=== PATIENT | female | born 1965 | race Caucasian/White ===

== ENCOUNTER 2023-11-25 06:31 | Day surgery (SDC) | payer SELFPAY ==
[2023-11-18 14:45] VITALS: BMI 25.7
[2023-11-25] MEDS ORDERED: EPINEPHrine/PF 1 MG/1 ML (1:1,000) AMPULE ONE ×2 (07:12→08:01)
[2023-11-25] MEDS ORDERED: NITROGLYCERIN 2% OINTMENT - 1GM PACKET TD ONE (07:12)
[2023-11-25] MEDS ORDERED: BUPIVACAINE HCL/PF 0.25% (2.5MG/ML) 10 ML VIAL ONE (07:12)
[2023-11-25] MEDS ORDERED: BACITRACIN ZINC 15 GM TUBE TOPICAL OINTMENT ONE (07:13)
[2023-11-25] MEDS ORDERED: ONDANSETRON 4 MG/2 ML VIAL ONE (07:52)
[2023-11-25] MEDS ORDERED: HYDROmorphone HCL/PF 1 MG/ML VIAL ONE ×2 (07:52→10:41)
[2023-11-25] MEDS ORDERED: PROPOFOL 40 ML ONE (07:52)
[2023-11-25] MEDS ORDERED: ceFAZolin SODIUM 1 GM VIAL ONE (07:52)
[2023-11-25] MEDS ORDERED: ROCURONIUM BROMIDE 50 MG/5 ML SYRINGE ONE ×2 (07:52→11:17)
[2023-11-25] MEDS ORDERED: DEXAMETHASONE SOD PHOSPHATE 4 MG/1 ML VIAL ONE (07:52)
[2023-11-25] MEDS ORDERED: MIDAZOLAM HCL 2 MG/2 ML SINGLE DOSE VIAL ONE (07:53)
[2023-11-25] MEDS ORDERED: LIDOCAINE HCL/PF 2% SDV 5ML VIAL ONE (07:54)
[2023-11-25] MEDS ORDERED: HEPARIN NA (PORCINE) 5,000 UNITS/ML 1ML VIAL ONE (07:56)
[2023-11-25] MEDS ORDERED: BUPIVACAINE LIPOSOME/PF (EXPAREL) 266 MG/20 ML VIAL ONE (08:00)
[2023-11-25] MEDS ORDERED: HEPARIN NA (PORCINE) 5,000 UNITS/ML 1ML VIAL SQ ONE (08:01)
[2023-11-25] MEDS ORDERED: LIDOCAINE 1%/EPI 1:100000 (50 ML MULTI DOSE VIAL) ONE (08:01)
[2023-11-25] MEDS ORDERED: ACETAMINOPHEN INJECTION 100 ML IVPB ONE (09:59)
[2023-11-25] MEDS ORDERED: ePHEDrine SULFATE 50 MG/1 ML AMPULE ONE (10:20)
[2023-11-25] MEDS ORDERED: PROPOFOL 20 ML ONE ×2 (12:49→13:11)
[2023-11-25] MEDS ORDERED: ONDANSETRON 4 MG/2 ML VIAL IVPB PRN (13:54)
[2023-11-25] MEDS ORDERED: ONDANSETRON 4 MG/2 ML VIAL IVPUSH PRN (13:56)
[2023-11-25] MEDS ORDERED: LACTATED RINGERS SOLUTION 1,000 ML IV SCH ×2 (14:00)
[2023-11-25] MEDS: HYDROmorphone HCl 2 MG/ML VIAL IVPUSH PRN ×3 (14:00→14:40)
[2023-11-25] MEDS ORDERED: valACYclovir HCL 500 MG TABLET (FP) PO PRN (14:03)
[2023-11-25] MEDS: CEFAZOLIN 1 GM in DEXTROSE 5%-WATER - 50 ML IVPB SCH (17:18)
[2023-11-25] MEDS: oxyCODONE HCL 5 MG TABLET PO PRN (18:07)
[2023-11-25] MEDS: BACITRACIN ZINC 15 GM TUBE TOPICAL OINTMENT TP SCH (21:39)
[2023-11-25] MEDS: GLYCOPYRROLATE 1 MG TABLET PO SCH (21:39)
[2023-11-25] MEDS ORDERED: MONTELUKAST NA 10 MG TABLET PO SCH (22:00)
[2023-11-26] MEDS: oxyCODONE HCL 5 MG TABLET PO PRN ×3 (01:36→10:43)
[2023-11-26] MEDS: CEFAZOLIN 1 GM in DEXTROSE 5%-WATER - 50 ML IVPB SCH ×2 (01:36→09:49)
[2023-11-26 06:56] VITALS: PULSE 90
[2023-11-26] MEDS ORDERED: SIMETHICONE 80 MG TAB.CHEW (FP) PO PRN (07:20)
[2023-11-26] MEDS ORDERED: PROMETHAZINE HCL 25 MG/1 ML VIAL IVPB PRN (07:22)
[2023-11-26] MEDS ORDERED: HEPARIN NA (PORCINE) 5,000 UNITS/ML 1ML VIAL SQ SCH (08:00)
[2023-11-26] MEDS ORDERED: diazePAM 5 MG TABLET PO PRN (08:24)
[2023-11-26] MEDS ORDERED: BACLOFEN 10 MG TABLET (FP) PO ONE (08:30)
[2023-11-26] MEDS ORDERED: ACETAMINOPHEN 1000 MG/100 ML BAG IVPB ONE (08:30)
[2023-11-26] MEDS: GLYCOPYRROLATE 1 MG TABLET PO SCH (09:48)
[2023-11-26] MEDS: BACITRACIN ZINC 15 GM TUBE TOPICAL OINTMENT TP SCH (09:48)
[2023-11-26] MEDS ORDERED: SERTRALINE HCL 50 MG TABLET (FP) PO SCH (10:00)
[2023-11-26 10:04] VITALS: BP 95/54; RESP 18; TEMP 99.4
[2023-11-26] MEDS ORDERED: ACETAMINOPHEN 500 MG TABLET (FP) PO PRN (15:00)
== END 2023-11-26 13:02 | disposition home or self-care (01) ==
LOC: FASUSAT 06:31 → FASU 06:31 → FM/S 15:51 → FASUSAT 11-26 13:02
PROVIDERS: ATTEND Plastic Surgery
CPT/HCPCS: 94760; J0475; J1644